=== PATIENT | female | born 2000 | race Caucasian/White ===

== ENCOUNTER 2018-08-12 17:15 | Emergency (ER) | payer BC ==
[~2018-08-12 17:15] MED LIST: Sodium Chloride Irrig Solution 250 ML BOT ONE
== END 2018-08-12 19:28 | disposition home or self-care (01) ==
LOC: MADERS 17:15
DX: S01.112A Laceration without foreign body of left eyelid and periocular area, initial encounter (principal); G47.00 Insomnia, unspecified; F41.9 Anxiety disorder, unspecified; F32.9 Major depressive disorder, single episode, unspecified; W22.8XXA Striking against or struck by other objects, initial encounter
CPT/HCPCS: 12011